=== PATIENT | female | born 1980 | race Caucasian/White ===

== ENCOUNTER 2020-03-22 02:32 | Outpatient (CLI) | payer OTHER, SELFPAY ==
--- NOTE | 2020-03-22 10:35 | DI.MRI_ITS ---
EXAM: MR UPPER JOINT RT WO CLINICAL HISTORY: SHOULDER PAIN,LIMITED RANGE OF MOTION,[id number],M25.511. TECHNIQUE: Multiplanar multisequence MRI was performed. COMPARISON: No exams were available for comparison FINDINGS: BONES: There is no fracture or contusion pattern. JOINTS: Mild degenerative changes of the AC joint. The glenohumeral joint is normal. TENDONS: Supraspinatus: Tendinosis of the supraspinatus tendon. No evidence of a tear. Infraspinatus: Unremarkable. Subscapularis: Tendinosis. Teres Minor: Unremarkable. Biceps and Umpqua: Unremarkable. MUSCLES: Unremarkable. GLENOID LABRUM: Unremarkable on this noncontrast examination. SOFT TISSUES: Unremarkable. LIGAMENTS: Unremarkable. OTHER: Subacromial and subdeltoid bursae are unremarkable. 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 Mild DJD of the AC joint. DATA REPOSITORY:
== END 2020-03-22 02:52 ==
PROVIDERS: PCP Nurse Practitioner Family; Visit Provider Nurse Practitioner Family
DX: M67.813 Other specified disorders of tendon, right shoulder (principal); M25.511 Pain in right shoulder
CPT/HCPCS: 73221